=== PATIENT | female | born 1980 | race Hispanic/Latino ===

== ENCOUNTER 2020-11-17 16:22 | Emergency (ER) | payer BC ==
--- NOTE | 2020-11-17 17:12 | RAD REPORT ---
EXAM DESCRIPTION: RAD - Hand Left 3 View - 11/17/2020 5:02 pm CLINICAL HISTORY: PAIN COMPARISON: No comparisons FINDINGS: Oblique fracture is present involving the proximal phalanx of the fourth finger with surro unding soft tissue swelling.
--- NOTE | 2020-11-17 20:12 | EDPHYS ---
Physician Documentation [facility] Name: Cedric Jarvis Age: 40 yrs Sex: Female : 1980 Arrival Date: 11/17/2020 Time: 16:33 Bed 15 Private MD: ANNMARIE Physician Rosalino Pettit HPI: 11/17 20:00 This 40 yrs old Female presents to ER via Ambulatory with complaints of Finger cp Injury. 20:00 The patient or guardian reports injury, pain, swelling, tenderness. cp 20:00 The complaints affect the proximal phalanx left fourth finger. Context: resulted from a cp direct blow, struck finger against wooden board. Onset: The symptoms/episode began/occurred today. Associated signs and symptoms: Pertinent negatives: cyanosis distally, decreased sensation distally. Historical: - Allergies: 16:42 PENICILLINS; ll1 - PSHx: 16:42 ; ll1 - Immunization history:: Flu vaccine is up to date. - Social history:: Smoking status: Patient denies any tobacco usage or history of. ROS: 20:05 MS/extremity: Positive for injury or acute deformity, pain, swelling, tenderness, of cp the proximal phalanx left fourth finger, Negative for paresthesias. 20:05 Constitutional: Negative for body aches, chills, fever. cp 20:05 Skin: Negative for cellulitis, rash. 20:05 All other systems are negative. Exam: 20:08 Head/Face: Normocephalic, atraumatic. cp 20:08 Constitutional: The patient appears in no acute distress, alert, awake, non-toxic, well developed, well nourished. 20:08 Cardiovascular: Rate: normal. 20:08 Respiratory: the patient does not display signs of respiratory distress, Respirations: normal, no use of accessory muscles, no retractions. 20:08 Musculoskeletal/extremity: Extremities: grossly normal except: noted in the proximal phalanx left fourth finger: ecchymosis, pain, swelling, tenderness, painful ROM, Perfusion: the extremity is normally perfused throughout, Sensation intact. 20:08 Skin: no open wound or signs of cellulitis noted to left fourth finger. Vital Signs: 16:42 BP 114 / 70; Pulse 79; Resp 17; Temp 97.9; Pulse Ox 100% ; Weight 72.57 kg; Height 5 ll1 ft. 5 in. (165.10 cm); Pain 9/10; 21:00 BP 120 / 70; Pulse 70; Resp 18; Pulse Ox 98% on R/A; ea 16:42 Body Mass Index 26.63 (72.57 kg, 165.10 cm) ll1 Procedures: 21:10 Splinting: Splint applied to left fourth finger using finger splint, sugar tong type. cp applied by tech. Examined by me, post splint application: neurovascular intact, Patient tolerated well. MDM: 20:05 Patient medically screened. cp 20:10 Data reviewed: vital signs, nurses notes, radiologic studies, plain films, and as a cp result, I will discharge patient. Test interpretation: by ED physician or midlevel provider: plain radiologic studies. Counseling: I had a detailed discussion with the patient and/or guardian regarding: the historical points, exam findings, and any diagnostic results supporting the discharge/admit diagnosis, radiology results, the need for outpatient follow up, for definitive care, a hand specialist. 11/17 16:47 Order name: Hand Left 3 View XRAY sv 11/17 20:05 Order name: Splint - Finger: sugartong left fourth finger; Complete Time: 21:14 cp Administered Medications: 20:25 Drug: Ibuprofen 800 mg Route: PO; ea 21:15 Follow up: Response: No adverse reaction ea 20:26 Drug: Tylenol #3 (300 mg-30 mg) 2 tabs Route: PO; ea 21:15 Follow up: Response: No adverse reaction; RASS: Alert and Calm (0) ea Disposition: 21:20 Chart complete. cp 11/18 05:58 Co-signature as Attending Physician, Rosalino Pettit MD I agree with the assessment and tamy plan of care. Disposition: 11/17/20 20:12 Discharged to Home. Impression: Nondisplaced fracture of proximal phalanx of left ring finger. - Condition is Stable. - Discharge Instructions: Finger Fracture. - Prescriptions for Ibuprofen 800 mg Oral Tablet - take 1 tablet by ORAL route every 8 hours As needed take with food; 30 tablet. Tylenol- Codeine #3 300-30 mg Oral Tablet - take 2 tablets by ORAL route every 8-12 hours As needed; 15 tablet. - Medication Reconciliation Form, Thank You Letter, Antibiotic Education, Prescription Opioid Use form. - Follow up: Damion Barakat MD; When: 2 - 3 days; Reason: Recheck today's complaints. - Problem is new. - Symptoms have improved. Signatures: Dispatcher [employer] EDRosalino Parker MD MD cha Page, Corey, PA PA cp Antunez, Elena RN Caroline Clinton ea, RN RN ll1 Corrections: (The following items were deleted from the chart) 11/17 21:15 20:12 11/17/2020 20:12 Discharged to Home. Impression: Nondisplaced fracture of ea proximal phalanx of left ring finger. Condition is Stable. Forms are Medication Reconciliation Form, Thank You Letter, Antibiotic Education, Prescription Opioid Use. Follow up: Damion Barakat; When: 2 - 3 days; Reason: Recheck today's complaints. Problem is new. Symptoms have improved. cp
--- NOTE | 2020-11-17 20:12 | ER ---
Nurse's Notes 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 Abrasion and finger pain since. + swelling. PMS intact. Coronavirus screen: Client denies travel out of the [place] in the last 14 days. At this time, the client does not indicate any symptoms associated with coronavirus-19. Ebola Screen: Patient denies travel to an Ebola-affected area in the 21 days before illness onset. Initial Sepsis Screen: Does the patient meet any 2 criteria? No. Patient's initial sepsis screen is negative. Does the patient have a suspected source of infection? Yes: Bone or joint infection. Risk Assessment: Do you want to hurt yourself or someone else? Patient reports no desire to harm self or others. Onset of symptoms was November 17, 2020. 16:42 Method Of Arrival: Ambulatory ll1 16:42 Acuity: LUPILLO 4 ll1 Historical: - Allergies: 16:42 PENICILLINS; ll1 - PSHx: 16:42 ; ll1 - Immunization history:: Flu vaccine is up to date. - Social history:: Smoking status: Patient denies any tobacco usage or history of. Screenin:35 Abuse screen: Denies threats or abuse. Nutritional screening: No deficits noted. ea Tuberculosis screening: No symptoms or risk factors identified. Fall Risk None identified. Assessment: 20:35 General: Appears in no apparent distress. Behavior is calm, cooperative, appropriate ea for age. Pain: Complains of pain in palmar aspect of middle phalanx of left ring finger and palmar aspect of proximal phalanx of left ring finger. Neuro: Level of Consciousness is awake, alert, obeys commands, Oriented to person, place, time. Respiratory: Airway is patent Respiratory effort is even, unlabored, Respiratory pattern is regular, symmetrical. Derm: Skin is pink, warm \T\ dry. Musculoskeletal: Swelling present in dorsal aspect of middle phalanx of left ring finger and dorsal aspect of proximal phalanx of left ring finger. 21:08 Reassessment: Patient and/or family updated on plan of care and expected duration. Pain ea level reassessed. Patient is alert, oriented x 3, equal unlabored respirations, skin warm/dry/pink. Discharge instruction given to patient, verbalized the understanding of instruction. Vital Signs: 16:42 BP 114 / 70; Pulse 79; Resp 17; Temp 97.9; Pulse Ox 100% ; Weight 72.57 kg; Height 5 ll1 ft. 5 in. (165.10 cm); Pain 9/10; 21:00 BP 120 / 70; Pulse 70; Resp 18; Pulse Ox 98% on R/A; ea 16:42 Body Mass Index 26.63 (72.57 kg, 165.10 cm) ll1 ED Course: 16:33 Patient arrived in ED. as 16:42 Arm band placed on. ll1 16:44 Triage completed. 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 Ok to put in ll1 x-ray of L hand while waiting in the lobby. 17:00 Hand Left 3 View XRAY In Process Unspecified. EDMS 19:55 Rosalino Marcum PA is PHCP. cp 19:55 Rosalino Pettit MD is Attending Physician. cp 20:04 Maribell Leary, LAN is Primary Nurse. ea 20:11 Damion Barakat MD is Referral Physician. cp 20:35 Patient has correct armband on for positive identification. Bed in low position. Call ea light in reach. Side rails up X 1. 21:00 IV discontinued, intact, bleeding controlled, No redness/swelling at site. Pressure ea dressing applied. 21:09 No provider procedures requiring assistance completed. ea 21:13 Roni wrap to dorsal aspect of proximal phalanx of left ring finger and palmar aspect of jp3 proximal phalanx of left ring finger Aluminum finger splint applied to dorsal aspect of proximal phalanx of left ring finger and palmar aspect of proximal phalanx of left ring finger. Administered Medications: 20:25 Drug: Ibuprofen 800 mg Route: PO; ea 21:15 Follow up: Response: No adverse reaction ea 20:26 Drug: Tylenol #3 (300 mg-30 mg) 2 tabs Route: PO; ea 21:15 Follow up: Response: No adverse reaction; RASS: Alert and Calm (0) ea Outcome: 20:12 Discharge ordered by MD. mariano 21:14 Discharged to home ambulatory, with family. ea 21:14 Condition: stable 21:14 Discharge instructions given to patient, Instructed on discharge instructions, follow up and referral plans. medication usage, Demonstrated understanding of instructions, follow-up care, medications. 21:14 Prescriptions given X 2. 21:15 Patient left the ED. ea Signatures: Dispatcher [employer] Yelena Brand Corey, Maribell Jaimes cp, RN RN Blane Garcia [id number] Caroline Tom RN RN ll1
[2020-11-17] MEDS ORDERED: IBUPROFEN 400 MG TAB ONE (20:29)
[2020-11-17] MEDS ORDERED: CODEINE 30MG/APAP 300MG TAB ONE (20:29)
[2020-11-17 21:25] VITALS: TEMP 97.9
[2020-11-17 21:26] VITALS: BP 120/70; O2SAT 98
== END 2020-11-17 21:15 | disposition home or self-care (01) ==
LOC: ER 16:22
PROC: 2W3KX1Z Immobilization of Left Finger using Splint (ICD-10-PCS; principal; 2020-11-17)
DX: S62.645A Nondisplaced fracture of proximal phalanx of left ring finger, initial encounter for closed fracture (principal); W22.8XXA Striking against or struck by other objects, initial encounter; Y93.9 Activity, unspecified; Y92.9 Unspecified place or not applicable; Z88.0 Allergy status to penicillin
CPT/HCPCS: 99284

== ENCOUNTER 2020-11-22 08:03 | Day surgery (SDC) | payer BC ==
[2020-11-21 14:18] LABS: Specific Gravity 1.025 (1.005-1.030)
[2020-11-22] MEDS ORDERED: Ringers Lactate 1,000 ML IV ONE (08:48)
[2020-11-22] MEDS ORDERED: CEFAZOLIN/SWI 1gm 0 GM/0 ML SYR ONE (08:49)
[2020-11-22] MEDS ORDERED: CLINDAMYCIN INJ 300 MG in NA CHLORIDE 0.9% 50 ML IV ONE (09:00)
[2020-11-22] MEDS ORDERED: propofoL 200 MG/20 ML VIAL IV ONE (09:01)
[2020-11-22] MEDS ORDERED: LIDOCAINE 1% MPF 5 ML VIAL ONE (09:01)
[2020-11-22] MEDS ORDERED: FENTANYL CITR 100 MCG/2 ML ONE (09:01)
[2020-11-22] MEDS ORDERED: MIDAZOLAM HCL 2 MG/2 ML INJ ONE (09:01)
[2020-11-22] MEDS ORDERED: KETOROLAC 30 MG/ML INJ ONE (09:29)
[2020-11-22] MEDS ORDERED: dexAMETHasone 10 MG/ML VIAL ONE (09:29)
[2020-11-22] MEDS ORDERED: ONDANSETRON 4 MG/2 ML VIAL ONE (10:32)
[2020-11-22] MEDS: MORPHINE 4 MG/ML SYR ONE ×2 (10:39→10:50)
[2020-11-22] MEDS ORDERED: MEPERIDINE HCL 50 MG/ML ONE (10:47)
[2020-11-22] MEDS ORDERED: PROMETHAZINE INJ 25 MG/ML AMP ONE (10:55)
--- NOTE | 2020-11-22 10:55 | RAD REPORT ---
EXAM DESCRIPTION: CR - Finger-Thumb Left - 11/22/2020 10:40 am CLINICAL HISTORY: Finger fracture FINDINGS: Six fluoroscopic spot images obtained. Fluoroscopy time 0.4 minutes Open reduction internal fixation of a fracture involving fourth proximal phalanx. Surgery performed corinne Barakat
--- NOTE | 2020-11-22 11:44 | OP ---
Surgeon: Damion Barakat MD Preoperative Diagnosis: Spiral fracture of the left ring finger proximal phalanx. Postoperative Diagnosis: Spiral fracture of the left ring finger proximal phalanx. Procedure: Open reduction and internal fixation and splint. Anesthesia: General. Procedure In Detail: After satisfactory induction of general anesthesia, left hand was prepped with Betadine scrub, Betadine paint, dry sterile drapes were applied in the usual manner. The arm was elevated, exsanguinated with an Esmarch. Tourniquet inflated to 250 mmHg. Hand was placed on the Roto Lock table. A curvilinear incision was made over dorsum of the proximal phalanx of the ring finger extending from the PIP to the MCP joint. I dissected down to the extensor tendon and then the extensor mechanism was split in the midline and dissected down to the fracture. The fracture was oblique. The patient had a fracture line with some rotation. The fracture was reduced with a clamp. Then, drill holes were made. A 1.1 drill holes were made first and then enlarged to 1.3, and then the screws placed in 2 points. Then the screws were passed 6 distally and 8 proximally were used. C-arm revealed good reduction and the tourniquet released. Electrocautery used for hemostasis. The extensor tendon was closed with 5-0 Prolene clear. The skin closed with 4-0 Prolene vertical mattress simple sutures. Dressed with Xeroform, 2 inch Morales, Kerlix. fiberglass splint with the MCP, PIP, DIP 0. The patient tolerated the procedure well and returned to Recovery. ARON/SHAAN Voice ID: [id number] Report ID: [id number] HELLEN
[2020-11-22] MEDS ORDERED: HYDROCODONE/APAP 7.5/325 MG TAB ONE (11:50)
[2020-11-22 12:00] VITALS: BP 115/74; TEMP 97.2; O2SAT 100
== END 2020-11-22 12:35 | disposition home or self-care (01) ==
LOC: OR 08:03
PROVIDERS: ATTEND Specialist
PROC: 0PSV04Z Reposition Left Finger Phalanx with Internal Fixation Device, Open Approach (ICD-10-PCS; principal; 2020-11-22 09:00)
DX: S62.615A Displaced fracture of proximal phalanx of left ring finger, initial encounter for closed fracture (principal); Z20.822 Contact with and (suspected) exposure to COVID-19
CPT/HCPCS: 81025; J0690; J1100; J2175; J2250; J2405; J2550; J2704; J3010; J7120; U0002